=== PATIENT | female | born 1975 | race Caucasian/White ===

== ENCOUNTER 2016-10-11 08:41 | Day surgery (SDC) | payer BC, OTHER ==
[~2016-10-11] VITALS: Ht 165.1 cm; Wt 74.8 kg
[~2016-10-11 08:41] MED LIST: ALBU17IN INH; CYCL10TA PO; IBUP40TA PO; TOPA200T6 PO; TROK1CAP PO; VENL37CA PO; VIMP200T PO
[2016-10-11] MEDS ORDERED: LR 1,000 ML IV SCH ×3 (09:00→14:30)
[2016-10-11] MEDS ORDERED: [UNRECOGNIZED DRUG - CODE] PO (09:16)
[2016-10-11 09:23] LABS: MEAN CORPUSCULAR HGB CONC 33.2 g/dl (32.0-36.5); MEAN CORPUSCULAR VOLUME 90.4 fl (80.0-96.0); RED CELL DISTRIBUTION WIDTH 12.4 % (11.5-14.5); WHITE BLOOD COUNT 9.1 K/mm3 (4.0-10.0)
[2016-10-11 09:28] LABS: CONTROL LINE HCG INT CTR LINE PRESENT
[2016-10-11] MEDS ORDERED: GLYCOPYRROLATE INJ 0.2 MG/ML 2 ML VIAL As Ordered ONE ×2 (10:01→12:36)
[2016-10-11] MEDS ORDERED: PROPOFOL 200 MG/20 ML VIAL As Ordered ONE (10:01)
[2016-10-11] MEDS ORDERED: ONDANSETRON 4MG/2ML VIAL (J2405) As Ordered ONE ×2 (10:01→12:48)
[2016-10-11] MEDS ORDERED: dexameTHASONE 4 MG/ML 1ML VIAL (J1100) As Ordered ONE (10:01)
[2016-10-11] MEDS ORDERED: LIDOCAINE 2% INJ 100 MG/5 ML SDV (FOR ANES.) As Ordered ONE (10:01)
[2016-10-11] MEDS ORDERED: ROCURONIUM BROMIDE 50 MG/5 ML VIAL As Ordered ONE ×2 (10:01→12:38)
[2016-10-11] MEDS ORDERED: MIDAZOLAM INJ 2 MG/2 ML VIAL (J2250) As Ordered ONE (10:01)
[2016-10-11] MEDS ORDERED: NEOSTIGMINE 1MG/ML 5 ML SYRINGE (J2710) As Ordered ONE ×2 (10:01→12:36)
[2016-10-11] MEDS ORDERED: fentaNYL 100 MCG/2 ML INJECTION (J3010) As Ordered ONE (10:02)
[2016-10-11] MEDS ORDERED: BUPIVACAINE HCL 0.25% 30 ML VIAL As Ordered ONE (10:50)
[2016-10-11] MEDS ORDERED: ePHEDrine SULFATE 25 MG/5 ML(5MG/ML) SYRINGE As Ordered ONE (11:34)
[2016-10-11] MEDS ORDERED: HYDROmorphone HCL 2 MG/ML 1ML VIAL (J1170) As Ordered ONE (11:57)
[2016-10-11] MEDS ORDERED: REMIFENTANIL 1MG 3ML VIAL As Ordered ONE (12:22)
[2016-10-11] MEDS ORDERED: BUPIVACAINE HCL 0.25% 30 ML VIAL XX ONE (12:26)
[2016-10-11] MEDS ORDERED: METHYLENE BLUE 1% 10 ML VIAL (Q9968) As Ordered ONE (12:31)
[2016-10-11] MEDS ORDERED: KETOROLAC 60 MG/2 ML VIAL (J1885) As Ordered ONE (12:48)
--- NOTE | 2016-10-11 14:29 | RO ---
DATE OF PROCEDURE: 10/11/2016 PREOPERATIVE DIAGNOSIS: Abnormal uterine bleeding. Dysmenorrhea. POSTOPERATIVE DIAGNOSIS: Abnormal uterine bleeding. Dysmenorrhea. Fibroid uterus. PROCEDURE: Robotic assisted laparoscopic hysteroscopy, bilateral salpingectomy with cystoscopy. SURGEON: Anaya Red MD PROBATION OFFICER: ABNER Cr ANESTHESIA: General endotracheal anesthesia. ESTIMATED BLOOD LOSS: 100 mL. INTRAVENOUS FLUIDS: 2 liters lactated Ringer solution. URINE OUTPUT: 500 mL. SPECIMENS: Bilateral fallopian tubes, cervix and uterus. PREOPERATIVE ANTIBIOTICS: 2 grams of Ancef. OPERATIVE FINDINGS: Patient with a subserosal fibroid. Bilateral adnexa appeared to be normal. DESCRIPTION OF PROCEDURE: After informed consent was obtained and written content was reviewed, the patient was brought to the operating room where general endotracheal anesthesia was obtained. She was then placed in lithotomy position and was prepped and draped in a normal sterile fashion. A time out in the operating room was then performed identifying the patient, the procedure to be performed, as well as drug allergies. A bivalved speculum was then placed revealing the cervix. The anterior lip of the cervix was grasped with a single tooth tenaculum. Both the anterior and posterior aspects of the cervix were stitched with #0 Vicryl. The uterus was then sounded to 11 cm. A large [employer] uterine manipulator was then advanced through the cervical os. The cervical sleeve as well as the vaginal sleeve was advanced down to the vagina. The single tooth tenaculum was then removed. Pérez catheter was then set to gravity. Gloves were changed and attention was turned to the patient's abdomen where a Veress needle was placed through the umbilicus. Pneumoperitoneum was then obtained with CO2 gas. The supraumbilical area was then infused with 1/4% Marcaine. An incision was made in this area and the 12 mm trocar and sleeve was advanced through this incision under direct visualization. Intra-abdominal placement was then confirmed. The abdomen was then surveyed with the above noted findings. Three additional ports were placed, each one of these were 8 mm in size. There was one on the patient's right side parallel to the umbilicus. This area was infused with Marcaine and incision was made in this area. Under direct visualization, 8 mm trocar and sleeve was advanced through this incision. In a similar fashion, on the patient's left side parallel to the umbilicus a second port was placed. This area was infused with 1/4% Marcaine and an 8 mm trocar and sleeve was advanced through this incision. An accessory port was also placed on this side of the patient which was 8 mm in size. Next, the da Rob robot was then docked utilizing bipolar cautery and monopolar juno. Using the equipment, the right fallopian tube was placed on traction. It was dissected along the mesosalpinx and was transected at the uterus. The fallopian tube was removed and sent to pathology. In a similar fashion, the left fallopian tube was placed on traction. The mesosalpinx was then dissected using the monopolar cautery. The fallopian tube was then transected at the uterus. The fallopian tube was then taken from the patient and sent to pathology for evaluation. Next, the utero-ovarian ligament was then cauterized, ligated and was excised with good hemostasis bilaterally. The round ligaments on both sides were then cauterized and ligated. The broad ligaments were further dissected out anteriorly creating a bladder flap. The uterine vessels were skeletonized bilaterally and were cauterized and ligated with good hemostasis noted. The remainder of the broad and cardinal ligaments were then cauterized and ligated with good hemostasis noted. An anterior as well as posterior colpotomy was then made. The uterus was then removed from the vagina. The abdomen was then irrigated and suctioned. The vaginal cuff was closed using a V-loc system in a running fashion. Tory was then applied over the surgical sites. The pneumoperitoneum was then released. Cystoscopy was performed revealing normal bladder mucosa. No foreign bodies. Bilateral jets were visualized. The hysteroscope was then removed. The gloves were then changed. Attention was turned to the patient's abdomen where the four port sites were closed using #4-0 Monocryl and dressed with Dermabond. The patient was then awakened from general anesthesia and was taken to recovery in stable condition. Gunjan Ortiz was my fire control assistant. Her role was essential to the operation. She assisted with identification of vital structures, manipulation of structures, as well as port placement and skin closure. Counts were correct.
[2016-10-11] MEDS ORDERED: ONDANSETRON 4MG/2ML VIAL (J2405) IV PRN (14:30)
[2016-10-11] MEDS ORDERED: fentaNYL 100 MCG/2 ML INJECTION (J3010) IV PRN (14:30)
[2016-10-11] MEDS ORDERED: PERCOCET 5MG/325MG TAB PO PRN ×3 (14:30)
[2016-10-11] MEDS ORDERED: MORPHINE 4 MG/ML 1ML SYRINGE IV PRN (14:30)
[2016-10-11] MEDS ORDERED: zolPIDEM TARTRATE 10MG TAB PO PRN (14:30)
[2016-10-11 14:35] VITALS: BP 132/66
[2016-10-11 15:05] VITALS: BP 116/69
[2016-10-11 15:35] VITALS: BP 108/57
[2016-10-11 16:12] VITALS: BP 108/57
[2016-10-11 16:35] VITALS: BP 116/70
[2016-10-11 17:35] VITALS: BP 121/72
[2016-10-11] MEDS ORDERED: KETOROLAC 30 MG/ML VIAL (J1885) IV SCH (19:00)
== END 2016-10-11 19:45 | disposition home or self-care (01) ==
LOC: M SDC 08:41 → M PED 14:25 → M SDC 19:45
PROVIDERS: ATTEND Obstetrics & Gynecology
DX: N92.0 Excessive and frequent menstruation with regular cycle (principal); N94.6 Dysmenorrhea, unspecified; N80.0 Endometriosis of uterus; D25.2 Subserosal leiomyoma of uterus; N72 Inflammatory disease of cervix uteri; R56.9 Unspecified convulsions; F41.9 Anxiety disorder, unspecified; F17.210 Nicotine dependence, cigarettes, uncomplicated; Z88.8 Allergy status to other drugs, medicaments and biological substances; Z79.899 Other long term (current) drug therapy
CPT/HCPCS: 36415; 58571; 84703; 85027; 86850; 86900; 86901; 88309; J0690; J1100; J1170; J1885; J2250; J2405; J2710; J3010; Q9968

== ENCOUNTER → 2016-12-02 | Outpatient (CLI) | payer BC ==
[~2016-12-02] MED LIST changes: +[UNRECOGNIZED DRUG - CODE] PO
--- NOTE | 2016-12-03 03:33 | REP ---
Clinical: Nephrolithiasis. Comparison: 01/05/2016. Technique: Two supine views of the abdomen and pelvis. Findings: Evaluation of the urinary tract system is significantly limited due to overlying bowel gas pattern. No obvious nephroureterolithiasis appreciated. Calcifications in the pelvis appear relatively stable and likely represent phleboliths. Skeletal structures demonstrate age-related degenerative changes. Impression: Limited evaluation for nephroureterolithiasis. Consider noncontrast CT of the abdomen and pelvis for further investigation if necessary. Signed by Tyler Michelle MD 12/03/2016 03:24 A
== END ==
LOC: M SMT 10:44
PROVIDERS: ATTEND Urology
DX: N20.0 Calculus of kidney (principal)

== ENCOUNTER → 2017-06-26 | Outpatient (REF) | payer BC, OTHER ==
[~2017-06-26] MED LIST changes: -TOPA200T6 PO; +TOPA200T7 PO; +VENL37.52 PO; -VENL37CA PO
== END ==
LOC: M SFHCLERA 12:26
PROVIDERS: ATTEND Physician Assistant
DX: R21 Rash and other nonspecific skin eruption (principal); N30.01 Acute cystitis with hematuria

== ENCOUNTER → 2017-09-15 | Outpatient (REF) | payer BC, OTHER | LOC: M SFHCLERA 15:31 | DX: Z13.1 Encounter for screening for diabetes mellitus (principal); Z13.220 Encounter for screening for lipoid disorders; Z53.9 Procedure and treatment not carried out, unspecified reason ==

== ENCOUNTER 2019-07-02 12:35 | Emergency (ER) | payer BC, OTHER ==
[~2019-07-02] VITALS: Ht 165.1 cm; Wt 86.4 kg
[~2019-07-02 12:35] MED LIST changes: -TROK1CAP PO; +TROK1CAP8 PO
[2019-07-02 13:38] LABS: BASO % 0.2 % (0.0-1.0); EOS % 0.5 % (0.0-3.0); HEMATOCRIT 42.6 % (36.0-47.0); HEMOGLOBIN 13.9 g/dl (12.0-15.5); LYMPH % 11.5 % (24.0-44.0); MEAN CORPUSCULAR HGB CONC 32.6 g/dl (32.0-36.5); MEAN CORPUSCULAR VOLUME 91.8 fl (80.0-96.0); MONO # 0.3 10^3/uL (0.0-0.8); MONO % 3.8 % (0.0-5.0); NEUTROPHILS # 7.2 10^3/uL (1.5-8.5); NEUTROPHILS % 83.7 % (36.0-66.0); PLATELET COUNT, AUTOMATED 247 10^3/uL (150-450); RED BLOOD COUNT 4.64 10^6/uL (4.00-5.40); WHITE BLOOD COUNT 8.6 10^3/uL (4.0-10.0)
[2019-07-02 14:03] LABS: BLOOD UREA NITROGEN 9 MG/DL (7-18); CALCIUM LEVEL 8.8 MG/DL (8.5-10.1); CARBON DIOXIDE LEVEL 28 MEQ/L (21-32); CHLORIDE LEVEL 111 MEQ/L (98-107); CREATININE FOR GFR 0.84 MG/DL (0.55-1.30); GLOMERULAR FILTRATION RATE > 60.0 (>58); GLUCOSE, FASTING 104 MG/DL (70-100); POTASSIUM SERUM 3.7 MEQ/L (3.5-5.1); SODIUM LEVEL 143 MEQ/L (136-145)
[2019-07-02] MEDS ORDERED: LACOSAMIDE 10MG/ML 20ML VIAL (VIMPAT) (C9254) IV STA (14:30)
--- NOTE | 2019-07-02 15:08 | REP ---
CT brain: 07/02/2019. Indication: Seizure. Comparison: 05/24/2015. Technique: Unenhanced axial CT images of the brain were obtained from skull base to vertex. Findings: There is no acute intracranial hemorrhage, acute cortical infarction, mass effect, hydrocephalus or acute calvarial fracture. The visualized paranasal sinuses and mastoid air cells are clear. Impression: No acute intracranial process or definite seizure focus. Electronically Signed by Pete Bach DO 07/02/2019 03:00 P
--- NOTE | 2019-07-02 15:43 | REP ---
RIGHT SHOULDER, THREE VIEWS: Three views of the right shoulder are performed. There is no acute fracture or dislocation. There is curvilinear calcification along the lateral humeral head which may represent calcific tendinitis. Electronically Signed by Reynaldo Morton MD 07/05/2019 09:36 A
[2019-07-02] MEDS ORDERED: VIMP100T PO (16:48)
[2019-07-02 17:00] VITALS: BP 109/73
== END 2019-07-02 17:10 | disposition home or self-care (01) ==
LOC: M ED 12:35
DX: R56.9 Unspecified convulsions (principal); F17.200 Nicotine dependence, unspecified, uncomplicated; F12.10 Cannabis abuse, uncomplicated; Z79.899 Other long term (current) drug therapy; Z88.8 Allergy status to other drugs, medicaments and biological substances
CPT/HCPCS: 70450; 73030; 80048; 82542; 85025; 93041; 94760; 96374; 99285; C9254

== ENCOUNTER 2019-09-27 11:31 | Emergency (ER) | payer OTHER ==
[~2019-09-27] VITALS: Ht 165.1 cm; Wt 88.1 kg
[~2019-09-27 11:31] MED LIST changes: +VIMP100T PO
[2019-09-27] MEDS ORDERED: VIMP200T PO (11:41)
[2019-09-27] MEDS ORDERED: carBAMazepine 100 MG *1/2* TAB PO STA (13:10)
[2019-09-27] MEDS ORDERED: TEGR200T PO (13:20)
[2019-09-27 14:15] VITALS: BP 101/59
== END 2019-09-27 14:22 | disposition home or self-care (01) ==
LOC: M ED 11:31
DX: G40.309 Generalized idiopathic epilepsy and epileptic syndromes, not intractable, without status epilepticus (principal); F17.200 Nicotine dependence, unspecified, uncomplicated; Z79.899 Other long term (current) drug therapy; Z88.8 Allergy status to other drugs, medicaments and biological substances

== ENCOUNTER 2021-04-02 21:33 | Emergency (ER) | payer OTHER ==
[~2021-04-02] VITALS: Ht 165.1 cm; Wt 88.0 kg
[~2021-04-02 21:33] MED LIST changes: +CYCL-707 PO; -CYCL10TA PO; +IBUP1TAB5 PO; -IBUP40TA PO; +TEGR200T PO
[2021-04-03 02:19] LABS: BASO % 0.4 % (0.0-1.0); EOS # 0.2 10^3/uL (0.0-0.5); EOS % 2.1 % (0.0-3.0); HEMATOCRIT 39.6 % (36.0-47.0); HEMOGLOBIN 13.5 g/dl (12.0-15.5); LYMPH # 3.5 10^3/uL (1.5-5.0); LYMPH % 36.9 % (24.0-44.0); MEAN CORPUSCULAR HEMOGLOBIN 31.2 pg (27.0-33.0); MEAN CORPUSCULAR HGB CONC 34.1 g/dl (32.0-36.5); MEAN CORPUSCULAR VOLUME 91.5 fl (80.0-96.0); MONO # 0.6 10^3/uL (0.0-0.8); MONO % 6.3 % (2.0-8.0); NEUTROPHILS # 5.2 10^3/uL (1.5-8.5); NEUTROPHILS % 54.2 % (36.0-66.0); PLATELET COUNT, AUTOMATED 216 10^3/uL (150-450); RED BLOOD COUNT 4.33 10^6/uL (4.00-5.40); WHITE BLOOD COUNT 9.5 10^3/uL (4.0-10.0)
[2021-04-03 02:53] LABS: ALBUMIN 3.1 GM/DL (3.2-5.2); ALT/SGPT 165 U/L (12-78); BILIRUBIN,DIRECT 0.1 MG/DL (0.0-0.2); BILIRUBIN,TOTAL 0.3 MG/DL (0.2-1.0); BLOOD UREA NITROGEN 10 MG/DL (7-18); CALCIUM LEVEL 8.1 MG/DL (8.5-10.1); CARBON DIOXIDE LEVEL 26 MEQ/L (21-32); CHLORIDE LEVEL 110 MEQ/L (98-107); CK-MB VALUE MASS < 1.0 NG/ML (<3.6); CPK CREATINE PHOSPHOKINASE 40 U/L (26-192); CREATININE FOR GFR 0.73 MG/DL (0.55-1.30); GLOMERULAR FILTRATION RATE > 60.0 (>58); GLUCOSE, FASTING 84 MG/DL (70-100); LIPASE 76 U/L (73-393); POTASSIUM SERUM 3.5 MEQ/L (3.5-5.1); SODIUM LEVEL 141 MEQ/L (136-145); TOTAL PROTEIN 6.3 GM/DL (6.4-8.2); TROPONIN I < 0.02 NG/ML (< 0.10)
[2021-04-03] MEDS ORDERED: KETOROLAC 30 MG/ML 1ML VIAL IV ONE (03:50)
[2021-04-03] MEDS ORDERED: NAPR-837 PO (03:51)
[2021-04-03 04:15] VITALS: BP 120/76
--- NOTE | 2021-04-03 05:10 | ECGEPIP ---
[facility] - ED Test Date: 2021-04-02 Pat Name: MARK ANTHONY HUNTER Department: Room: - Gender: Female Territory Representative: [place] : 1975 Requested By: ELLIS Granado Order Number: [id number] Reading MD: Devante Stephenson Measurements Intervals [place] Rate: 73 P: 47 TN: 176 QRS: 13 QRSD: 86 T: 28 QT: 378 QTc: 416 Interpretive Statements Normal sinus rhythm POOR R WAVE PROGRESSION SIMILAR TO 05/24/15 Electronically Signed on 04-03-2021 5:10:30 EDT by Devante Stephenson
== END 2021-04-03 04:33 | disposition home or self-care (01) ==
LOC: M ED 21:33
DX: R07.89 Other chest pain (principal); F17.200 Nicotine dependence, unspecified, uncomplicated; Z79.899 Other long term (current) drug therapy; Z88.8 Allergy status to other drugs, medicaments and biological substances
CPT/HCPCS: 80048; 80076; 82550; 82553; 83690; 84484; 85025; 93005; 93041; 96374; 99285; J1885

== ENCOUNTER 2022-10-30 23:41 | Emergency (ER) | payer OTHER ==
[~2022-10-30] VITALS: Ht 165.1 cm; Wt 79.0 kg
[~2022-10-30 23:41] MED LIST changes: +NAPR-837 PO
[2022-10-30] MEDS ORDERED: SIMV40TA20 PO (23:48)
[2022-10-30] MEDS ORDERED: ERGO500029 PO (23:48)
[2022-10-31 04:07] VITALS: BP 119/70
== END 2022-10-31 06:11 | disposition left against medical advice (07) ==
LOC: M ED 23:41
DX: Z53.21 Procedure and treatment not carried out due to patient leaving prior to being seen by health care provider (principal)

== ENCOUNTER → 2023-05-19 | Outpatient (CLI) | payer OTHER ==
[~2023-05-19] MED LIST changes: +ERGO500029 PO; +SIMV40TA20 PO
== END ==
LOC: M RAD 08:48
PROVIDERS: ATTEND Physician Assistant
DX: Z12.2 Encounter for screening for malignant neoplasm of respiratory organs (principal); F17.200 Nicotine dependence, unspecified, uncomplicated

== ENCOUNTER → 2024-07-02 | Outpatient (CLI) | payer OTHER | LOC: M RAD 08:29 | PROVIDERS: ATTEND Physician Assistant | DX: Z12.2 Encounter for screening for malignant neoplasm of respiratory organs (principal); F17.210 Nicotine dependence, cigarettes, uncomplicated; R91.1 Solitary pulmonary nodule; Z90.49 Acquired absence of other specified parts of digestive tract; K76.89 Other specified diseases of liver ==

== ENCOUNTER → 2024-10-22 | Outpatient (CLI) | payer OTHER ==
[~2024-10-22] MED LIST changes: -TROK1CAP8 PO; +[UNRECOGNIZED DRUG - CODE] PO
== END ==
LOC: M RAD 14:38
PROVIDERS: ATTEND Physician Assistant
DX: M47.812 Spondylosis without myelopathy or radiculopathy, cervical region (principal); M54.2 Cervicalgia; M25.541 Pain in joints of right hand

== ENCOUNTER → 2024-11-17 | Outpatient (CLI) | payer OTHER | LOC: M RAD 08:27 | PROVIDERS: ATTEND Physician Assistant | DX: K76.89 Other specified diseases of liver (principal); N20.0 Calculus of kidney ==

== ENCOUNTER 2025-08-07 13:59 | Emergency (ER) | payer OTHER ==
[~2025-08-07] VITALS: Ht 165.1 cm; Wt 91.3 kg
[2025-08-07 14:09] VITALS: BP 119/71; TEMP 97.6; O2SAT 97
[2025-08-07] MEDS ORDERED: PRAV10TA43 PO (14:32)
[2025-08-07] MEDS ORDERED: ESTR1DIS5 TD (14:32)
[2025-08-07] MEDS ORDERED: VITA200016 PO (14:32)
[2025-08-07 14:50] LABS: BASO # 0.0 10^3/uL (0.0-0.2); BASO % 0.3 % (0.0-1.0); EOS # 0.3 10^3/uL (0.0-0.5); EOS % 3.8 % (0.0-3.0); LYMPH # 3.3 10^3/uL (1.5-5.0); LYMPH % 45.3 % (24.0-44.0); MONO # 0.4 10^3/uL (0.0-0.8); MONO % 5.4 % (2.0-8.0); NEUTROPHILS # 3.3 10^3/uL (1.5-8.5); NEUTROPHILS % 45.1 % (36.0-66.0); PLATELET COUNT, AUTOMATED 269 10^3/uL (150-450)
[2025-08-07 15:20] LABS: ALT/SGPT 19 U/L (7.0-40); AST/SGOT 20 U/L (<34); CALCIUM LEVEL 9.2 MG/DL (8.5-10.1); CARBON DIOXIDE LEVEL 31 MMOL/L (20-31); CHLORIDE LEVEL 108 MMOL/L (98-107); CREATININE FOR GFR 1.10 MG/DL (0.55-1.30); GLOMERULAR FILTRATION RATE 60.5 (>51); POTASSIUM SERUM 4.1 MMOL/L (3.5-5.1); SODIUM LEVEL 144 MMOL/L (136-145)
[2025-08-07 15:22] LABS: HEPATITIS B SURFACE ANTIBODY NEGATIVE (POSITIVE)
[2025-08-07 15:46] LABS: HIV 1&2 SCREEN NEGATIVE (NEGATIVE)
[2025-08-07 15:55] LABS: HEPATITIS C VIRUS ABY INDEX 0.06 INDEX (<0.8)
== END 2025-08-07 14:45 | disposition left against medical advice (07) ==
LOC: M ED 14:44
DX: Z53.21 Procedure and treatment not carried out due to patient leaving prior to being seen by health care provider (principal)